=== PATIENT | male | born 1995 | race Caucasian/White ===

== ENCOUNTER 2017-09-25 14:14 | Emergency (ER) | payer MEDICAID ==
[~2017-09-25] VITALS: Ht 172.7 cm; Wt 68.0 kg
[2017-09-25 14:16] VITALS: BP 130/83
--- NOTE | 2017-09-25 14:28 | NUR ---
Patient ambulated to chair C with family. RN evaluating patient.
--- NOTE | 2017-09-25 14:30 | NUR ---
PT C/O RIGHT FOOT BIG TOE PAIN WITH MILD SWELLING BIB GIRLFRIEND. DENIES N/V/D; SKIN IS PINK/WARM/DRY; AAOX4 WITH EVEN AND STEADY GAIT; LUNGS CLEAR BL; HR EVEN AND REGULAR; PT DENIES ANY FEVER, CP, SOB, OR COUGH AT THIS TIME; PATIENT STATES PAIN OF 8/10 AT THIS TIME; VSS;ER MD MADE AWARE OF PT STATUS.
[2017-09-25] MEDS ORDERED: IBUPROFEN 400 MG TAB PO ONE (14:55)
[2017-09-25 15:18] VITALS: BP 130/80
--- NOTE | 2017-09-25 15:19 | NUR ---
Patient discharged with v/s stable. Written and verbal after care instructions given and explained. Patient alert, oriented and verbalized understanding of instructions. Ambulatory with CRUTCHES . All questions addressed prior to discharge. ID band removed. Patient advised to follow up with PMD. Rx of NORCO AND INDOMETHACIN given. Patient educated on indication of medication including possible reaction and side effects. Opportunity to ask questions provided and answered.
== END 2017-09-25 15:19 | disposition home or self-care (01) ==
LOC: MED 14:14
DX: M10.071 Idiopathic gout, right ankle and foot (principal); R03.0 Elevated blood-pressure reading, without diagnosis of hypertension
CPT/HCPCS: 99283

== ENCOUNTER 2018-06-08 10:18 | Emergency (ER) | payer OTHER ==
[~2018-06-08] VITALS: Ht 175.3 cm; Wt 68.0 kg
[2018-06-08 10:27] VITALS: BP 141/88
--- NOTE | 2018-06-08 10:34 | NUR ---
PT TO ER BED 12.
--- NOTE | 2018-06-08 10:41 | NUR ---
PT BIB SELF C/O INTERMITTENT JACKSON X1 MONTH. PT TOOK TYLENOL 1GM THIS AM W/ NO RELIEF. JACKSON 9/10, PT AWAKE AND ACTING APPROPRIATE , PERRL. NO PMH
[2018-06-08] MEDS ORDERED: KETOROLAC 60 MG/2 ML VIAL IM ONE (10:45)
[2018-06-08] MEDS ORDERED: ONDANSETRON 4 MG ODT PO ONE (10:45)
--- NOTE | 2018-06-08 10:54 | NUR ---
RECIEVED REPORT FROM SPENSER FOR CONTINUED CARE. PATIENT STABLE AT TIME OF TRANSFER.
--- NOTE | 2018-06-08 10:54 | NUR ---
REPORT TO ELISE PATTERSON, TRANSFER OF CARE AT THIS TIME .
[2018-06-08 11:40] VITALS: BP 141/88
--- NOTE | 2018-06-08 11:40 | NUR ---
Patient discharged with v/s stable. Written and verbal after care instructions given and explained. Patient alert, oriented and verbalized understanding of instructions. Ambulatory with steady gait. All questions addressed prior to discharge. ID band removed. Patient advised to follow up with PMD. Rx of ZOFRAN, MOTRIN, NORCO given. Patient educated on indication of medication including possible reaction and side effects. Opportunity to ask questions provided and answered.
== END 2018-06-08 11:40 | disposition home or self-care (01) ==
LOC: MED 10:18
DX: R51 Headache (principal); R11.0 Nausea
CPT/HCPCS: 81002; 96372; 99283; J1885; Q0162